=== PATIENT | male | born 1955 | race Caucasian/White ===

== ENCOUNTER 2022-05-04 11:06 | Emergency (ER) | payer MEDICAID, MEDICARE | END 2022-05-04 12:13 | disposition home or self-care (01) | LOC: JP.ED 11:06 | DX: Z45.2 Encounter for adjustment and management of vascular access device (principal); Z88.8 Allergy status to other drugs, medicaments and biological substances | CPT/HCPCS: 99283 ==

== ENCOUNTER 2022-07-26 15:25 | Day surgery (SDC) | payer MEDICARE ==
[2022-07-26] MEDS ORDERED: Propofol 200 MG/20 ML SDV ONE ×2 (16:08→16:51)
[2022-07-26 16:21] LABS: ESTIMATED GFR 60 mL/min (>60)
[2022-07-26] MEDS ORDERED: Sodium Chloride 0.9% 1,000 ML IV SCH (16:30)
[2022-07-26] MEDS ORDERED: fentaNYL 100 MCG/2 ML SDV ONE (16:51)
[2022-07-26] MEDS ORDERED: Midazolam 1 MG/ML 2 ML SDV ONE ×2 (16:51→17:40)
[2022-07-26] MEDS ORDERED: ceFAZolin 2 GM in Premix Bag 1 BAG IV ONE (17:00)
[2022-07-26 17:12] LABS: CORONAVIRUS COVID-19 NAA NEGATIVE (NEGATIVE)
[2022-07-26] MEDS ORDERED: Ondansetron 4 MG/2 ML SDV IVPUSH PRN (17:20)
[2022-07-26] MEDS ORDERED: Benzocaine/Cetylpyridinium/Menthol Lozenge MUCMEM PRN (17:20)
[2022-07-26] MEDS ORDERED: Docusate Sodium 100 MG Cap PO PRN (17:20)
[2022-07-26] MEDS ORDERED: Zolpidem 5 MG Tab PO PRN (17:20)
[2022-07-26] MEDS ORDERED: fentaNYL 50 MCG/ML SDV IVPUSH PRN ×3 (17:25→17:27)
[2022-07-26] MEDS ORDERED: Scopolamine 1.5 MG Transdermal Patch TOP ONE (17:30)
[2022-07-26] MEDS ORDERED: Bupivacaine 0.5% 50 ML MDV ONE (17:35)
[2022-07-26] MEDS ORDERED: VERIFY SCOP PATCH SCH (20:00)
[2022-07-26] MEDS: Acetaminophen/HYDROcodone 325-5 MG Tab PO PRN (22:27)
[2022-07-27] MEDS: Acetaminophen/HYDROcodone 325-5 MG Tab PO PRN ×2 (01:57→07:24)
[2022-07-27 05:05] LABS: ESTIMATED GFR 60 mL/min (>60)
== END 2022-07-27 09:30 | disposition home or self-care (01) ==
LOC: JP.ED 15:25 → JP.SDS 16:22 → JP.MS 19:07 → JP.SDS 07-27 09:30
PROVIDERS: ATTEND Surgery
DX: K40.30 Unilateral inguinal hernia, with obstruction, without gangrene, not specified as recurrent (principal); I25.10 Atherosclerotic heart disease of native coronary artery without angina pectoris; E78.00 Pure hypercholesterolemia, unspecified; I25.2 Old myocardial infarction; I12.9 Hypertensive chronic kidney disease with stage 1 through stage 4 chronic kidney disease, or unspecified chronic kidney disease; N18.30 Chronic kidney disease, stage 3 unspecified; F41.9 Anxiety disorder, unspecified; F32.A Depression, unspecified; Z20.822 Contact with and (suspected) exposure to COVID-19; Z88.8 Allergy status to other drugs, medicaments and biological substances; Z79.899 Other long term (current) drug therapy
CPT/HCPCS: 0241U; 36415; 49507; 80048; 80053; 83605; 85025; 99284; 99285; A9270; C1713; C1781; J0690; J2250; J2704; J3010; J3490

== ENCOUNTER 2024-02-11 10:28 | Emergency (ER) | payer MEDICARE | END 2024-02-11 12:21 | disposition home or self-care (01) | LOC: JP.ED 10:28 | DX: K64.5 Perianal venous thrombosis (principal); I25.10 Atherosclerotic heart disease of native coronary artery without angina pectoris; I25.2 Old myocardial infarction; I12.9 Hypertensive chronic kidney disease with stage 1 through stage 4 chronic kidney disease, or unspecified chronic kidney disease; N18.9 Chronic kidney disease, unspecified; E78.00 Pure hypercholesterolemia, unspecified; Z86.73 Personal history of transient ischemic attack (TIA), and cerebral infarction without residual deficits; Z95.5 Presence of coronary angioplasty implant and graft; Z88.8 Allergy status to other drugs, medicaments and biological substances; Z79.899 Other long term (current) drug therapy | CPT/HCPCS: 99283 ==